=== PATIENT | male | born 1955 | race Caucasian/White ===

== ENCOUNTER 2023-10-28 09:52 | Outpatient (AMB) | payer MEDICARE, SELFPAY ==
--- NOTE | 2023-10-28 10:10 | HO.NEPHOV ---
HPI HPI Comments History of Present Illness Details I had the privilege of seeing Glen in follow-up of his mild chronic kidney disease. He remains abstinent from alcohol. His blood pressure has been at goal. He is working hard to lose more weight. He denies any urinary symptoms, chest pain, proximal nocturnal dyspnea, orthopnea or pedal edema. He has no orthostatic symptoms. He does not take any nonsteroidal anti-inflammatory medications on a regular basis. He has been having erectile dysfunction. He is compliant with his medications. He had some abdominal pain and had undergone CT scan. He is also closely followed for pulmonary nodules. He did not have any other systemic complaints during this office visit. [facility] Medical History (Updated 10/28/23 @ 13:04 by Rashaad Barcenas MD) Elevated PSA Chronic kidney disease, stage 2 (mild) Social History (Updated 10/28/23 @ 10:19 by Minerva Alberto MA) Alcohol intake: never Patient Tobacco Use Status: Never used Tobacco Vital Signs 10/28/23 10:15 Height 5 ft 11 in Weight 223 lb 6 oz BMI 31.2 BP 138/80 Blood Pressure Location Lt brachial Position Sitting Pulse 70 Pulse Source Pulse Oximeter Physical Exam Vital Signs: Last Vital Signs Pulse 70 10/28/23 10:15 BP 138/80 10/28/23 10:15 BMI result Body Mass Index 31.2 Const General: comfortable and no acute distress Orientation/consciousness: patient oriented x3 HEENT Head: Yes normocephalic Mouth: Normal oral and palatal mucosa present Eyes EOM: EOMs intact bilaterally Neck Neck: Yes supple Resp Auscultation: clear to auscultation bilaterally Cardio Jugular venous distension: no JVD Rate: regular rate GI Palpation (GI): Soft to palpation Auscultation: normal bowel sounds General: Yes no CVA tenderness Back/Spine/Pelvis Back: no CVA tenderness Skin General skin exam: no rashes or lesions noted Neuro General: patient oriented x3 and moves all extremities Extrem General: Yes no pedal edema Assessment & Plan Assessment & Plan (1) Chronic kidney disease, stage 2 (mild): Code(s): N18.2 - Chronic kidney disease, stage 2 (mild) (2) Erectile disorder: Code(s): N52.9 - Male erectile dysfunction, unspecified Plan Glen has mild CKD due to loss of GFR , likely from some tubular injury in the past. His renal functions are at baseline. He does not have any hematuria or proteinuria. His blood pressure is at goal. He is losing weight. He avoids nonsteroidal anti-inflammatory medications. He has erectile dysfunction. He may need a urology consult for his erectile disorder. He is on statins. He is tolerating PPI. I have ordered follow-up laboratory studies. All his questions and concerns were addressed. Time spent retrieving data, documentation and patient encounter 24 minutes. Follow-up given. Orders: Orders Blood Urea Nitrogen Today N18.2 - Chronic kidney disease, stage 2 (mild) Calcium Today N18.2 - Chronic kidney disease, stage 2 (mild) Electrolytes Today N18.2 - Chronic kidney disease, stage 2 (mild) Creatinine Today N18.2 - Chronic kidney disease, stage 2 (mild) Protein Creatinine Ratio, Ur Today N18.2 - Chronic kidney disease, stage 2 (mild) Coding Level of Care Code Est Pt Level 3 (30737) Diagnoses Chronic kidney disease, stage 2 (mild) N18.2 Erectile disorder N52.9
[2023-10-28 10:15] VITALS: BP 138/80; PULSE 70; BMI 31.2
== END 2023-10-28 10:43 | disposition home or self-care (01) ==
PROVIDERS: PCP Family Medicine; Visit Provider Internal Medicine Nephrology
DX: N18.2 Chronic kidney disease, stage 2 (mild) (principal); N52.9 Male erectile dysfunction, unspecified
CPT/HCPCS: 99213

== ENCOUNTER 2023-10-28 09:52 | Outpatient (REF) | payer MEDICARE, SELFPAY ==
[2023-10-28 13:16] LABS: Anion Gap 10 (12-20); Blood Urea Nitrogen 18 mg/dL (9-16); Calcium 9.6 mg/dL (8.4-10.2); Carbon Dioxide 29 mmol/L (22-29); Chloride 105 mmol/L (96-108); Estimated Glomerular Filt Rate > 60; Potassium 4.3 mmol/L (3.3-5.1); Sodium 140 mmol/L (135-145)
[2023-10-28 13:46] LABS: Creatinine Urine 188.92 mg/dL; Protein/Creatinine Ratio, Ur 0.05 (<0.2); Total Protein Urine Random 9 mg/dL (<12)
== END 2023-10-28 09:53 | disposition home or self-care (01) ==
LOC: CF 09:52
PROVIDERS: PCP Family Medicine; Visit Provider Internal Medicine Nephrology
DX: N18.2 Chronic kidney disease, stage 2 (mild) (principal); N52.9 Male erectile dysfunction, unspecified
CPT/HCPCS: 36415; 80051; 82310; 82565; 82570; 84156; 84520; 99212

== ENCOUNTER 2024-05-18 15:41 | Outpatient (AMB) | payer MEDICARE, SELFPAY ==
--- NOTE | 2024-05-18 15:51 | HO.NEPHOV ---
Vital Signs 05/18/24 15:52 Height 5 ft 11 in Weight 225 lb 8 oz BMI 31.4 BP 130/80 Blood Pressure Location Lt brachial Position Sitting Pulse 76 Pulse Source Pulse Oximeter Pulse Oximetry (%) 95 Oxygen Delivery Method Room Air Intake Visit Reasons: r/s 05/06/2024/ LVM Utility Bill Complaints Investigator Required: No Accompanied by: Self / Same As Patient Allergies No Known Allergies Allergy (Verified 05/18/24 15:58) HPI Comments Details: I had the privilege of seeing Glen in follow-up of his mild chronic kidney disease. He remains abstinent from alcohol. His blood pressure has been at goal. He is working hard to lose more weight. He denies any urinary symptoms, chest pain, proximal nocturnal dyspnea, orthopnea or pedal edema. He has no orthostatic symptoms. He does not take any nonsteroidal anti-inflammatory medications on a regular basis. He has been having erectile dysfunction. He is compliant with his medications. He is also closely followed for pulmonary nodules. He did not have any other systemic complaints during this office visit. [facility] Medical History (Updated 10/28/23 @ 13:04 by Rashaad Barcenas MD) Elevated PSA Chronic kidney disease, stage 2 (mild) Social History Alcohol intake: never Patient Tobacco Use Status: Never used Tobacco Review of Systems Const All systems reviewed & are unremarkable except as noted in HPI and below Physical Exam Vital Signs: Last Vital Signs Pulse 76 05/18/24 15:52 BP 140/80 H 05/18/24 15:52 Pulse Ox 95 05/18/24 15:52 Oxygen Delivery Method Room Air 05/18/24 15:52 BMI result Body Mass Index 31.4 Const General: comfortable and no acute distress Orientation/consciousness: patient oriented x3 HEENT Head: Yes normocephalic Mouth: Normal oral and palatal mucosa present Eyes EOM: EOMs intact bilaterally Neck Neck: Yes supple Resp Auscultation: clear to auscultation bilaterally Cardio Jugular venous distension: no JVD Rate: regular rate GI Palpation (GI): Soft to palpation Auscultation: normal bowel sounds General: Yes no CVA tenderness Back/Spine/Pelvis Back: no CVA tenderness Skin General skin exam: no rashes or lesions noted Neuro General: patient oriented x3 and moves all extremities Extrem General: Yes no pedal edema Assessment & Plan Assessment & Plan (1) Chronic kidney disease, stage 2 (mild): Code(s): N18.2 - Chronic kidney disease, stage 2 (mild) Category: Medical Plan He has mild CKD likely from tubular injury in the past. His renal functions has been stable. His BP is at goal. He needs to avoid NSAID's. He should remain well hydrated. He needs to loose some more weight. I ordered 24 hour urine for GFR. I did not make any medication changes today. Follow up blood work ordered. Answered all questions. Orders: Orders Creatinine Clearance Urine 24U Today N18.2 - Chronic kidney disease, stage 2 (mild) Creatinine Today N18.2 - Chronic kidney disease, stage 2 (mild) Blood Urea Nitrogen Today N18.2 - Chronic kidney disease, stage 2 (mild) Electrolytes Today N18.2 - Chronic kidney disease, stage 2 (mild) Coding Level of Care Code Est Pt Level 4 (14797) Diagnoses Chronic kidney disease, stage 2 (mild) N18.2
[2024-05-18 15:52] VITALS: BP 130/80; PULSE 76; O2SAT 95; BMI 31.4
== END 2024-05-18 16:16 | disposition home or self-care (01) ==
PROVIDERS: PCP Family Medicine; Visit Provider Internal Medicine Nephrology
DX: N18.2 Chronic kidney disease, stage 2 (mild) (principal)
CPT/HCPCS: 99214

== ENCOUNTER → 2024-05-18 15:41 | Outpatient (BNVA) | payer MEDICARE, SELFPAY | PROVIDERS: PCP Family Medicine; Visit Provider Internal Medicine Nephrology | DX: N18.2 Chronic kidney disease, stage 2 (mild) (principal) | CPT/HCPCS: 99212 ==

== ENCOUNTER 2024-12-09 10:08 | Outpatient (AMB) | payer MEDICARE, SELFPAY ==
--- OUTSIDE RECORDS SUMMARY | 2024-12-09 10:41 | XMS_ITS ---
Author Name [facility] Organization Unknown History of Medication Use Medication Directions Dispensed Refills Start Date End Date Stat levothyroxine (SYNTHROID, LEVOTHROID) 112 MCG tablet Take 1 tablet by mouth daily. 12/01/2024 11/30/9999 active azithromycin (ZITHROMAX) 250 MG tablet Take 2 tabs PO on day one and one tabs on days 2-5 #6 12/01/2024 11/30/9999 active escitalopram (LEXAPRO) 20 MG tablet Take 20 mg by mouth. 12/01/2024 11/30/9999 active predniSONE (DELTASONE) 20 MG tablet Take 2 tablets (40 mg total) by mouth daily. 12/01/2024 11/30/9999 active escitalopram (LEXAPRO) 20 MG tablet Take 1 tablet by mouth daily. 12/01/2024 11/30/9999 active ipratropium-albutero l (DUONEB) 0.5-2.5 mg/3 mL nebulizer solution 3 mL 12/01/2024 11/30/9999 active relugolix (Orgovyx) 120 mg tablet Take by mouth daily 12/01/2024 11/30/9999 ac tive atorvastatin (LIPITOR) 40 MG tablet Take 40 mg by mouth. 12/01/2024 11/30/9999 active albuterol (PROVENTIL) (0.083%) 2.5 mg/3 mL nebulizer solution Take 3 mL (2.5 mg total) by nebulization 4 times daily (every 6 hours) as needed for wheezing or shortness of breath. 12/01/2024 11/30/9999 active Problems Problem Status Onset Date Problem Type Date of Resoluti on Source COPD exacerbation (HCC) active [facility] Acute cough active EncounterDiagnosisAct [facility]
--- NOTE | 2024-12-09 10:52 | HO.NEPHOV_ITS ---
Vital Signs 12/09/24 10:54 Height 5 ft 11 in Weight 228 lb 6 oz BMI 31.8 BP 110/70 Blood Pressure Location Lt brachial Position Sitting Pulse 70 Pulse Source Pulse Oximeter Pulse Oximetry (%) 92 Oxygen Delivery Method Room Air Intake Visit Reasons: 6 mon follow up-[employer] Supervisor Required: No Accompanied by: Self / Same As Patient Allergies No Known Allergies Allergy (Verified 12/09/24 10:54) HPI Comments Details: Glen in follow-up of his mild chronic kidney disease. He has a new diagnosis of metastatic prostate cancer. He remains abstinent from alcohol. His blood pressure has been at goal. He denies any urinary symptoms, chest pain, proximal nocturnal dyspnea, orthopnea or pedal edema. He has no orthostatic symptoms. He does not take any nonsteroidal anti-inflammatory medications on a regular basis. He has H/O pulmonary nodules. He did not have any other systemic complaints during this office visit [facility] Medical History (Updated 10/28/23 @ 13:04 by Rashaad Barcenas MD) Elevated PSA Chronic kidney disease, stage 2 (mild) Social History Alcohol intake: never Patient Tobacco Use Status: Never used Tobacco Review of Systems Const All systems reviewed & are unremarkable except as noted in HPI and below Physical Exam Vital Signs: Last Vital Signs Pulse 70 12/09/24 10:54 BP 110/70 12/09/24 10:54 Pulse Ox 92 12/09/24 10:54 Oxygen Delivery Method Room Air 12/09/24 10:54 BMI result Body Mass Index 31.8 Const General: comfortable and no acute distress Orientation/consciousness: patient oriented x3 HEENT Head: Yes normocephalic Mouth: Normal oral and palatal mucosa present Eyes EOM: EOMs intact bilaterally Neck Neck: Yes supple Resp Auscultation: clear to auscultation bilaterally Cardio Jugular venous distension: no JVD Rate: regular rate GI Palpation (GI): Soft to palpation Auscultation: normal bowel sounds Skin General skin exam: no rashes or lesions noted Neuro General: patient oriented x3 and moves all extremities Extrem General: Yes no pedal edema Assessment & Plan Assessment & Plan (1) Chronic kidney disease, stage 2 (mild): Code(s): N18.2 - Chronic kidney disease, stage 2 (mild) Category: Medical Plan He has mild CKD likely from tubular injury in the past. His renal functions has been stable. His BP is at goal. He needs to avoid NSAID's. He should remain well hydrated. He wanted to increase his lexapro which I increased to 30 mg if he needs it. I did not make any medication changes today. Follow up blood work ordered. Answered all questions. Orders: Orders Electrolytes 10 Months N18.2 - Chronic kidney disease, stage 2 (mild) Creatinine 10 Months N18.2 - Chronic kidney disease, stage 2 (mild) Blood Urea Nitrogen 10 Months N18.2 - Chronic kidney disease, stage 2 (mild) Calcium 10 Months N18.2 - Chronic kidney disease, stage 2 (mild) Coding Level of Care Code Est Pt Level 4 (42366) Diagnoses Chronic kidney disease, stage 2 (mild) N18.2
[2024-12-09 10:54] VITALS: BP 110/70; PULSE 70; O2SAT 92; BMI 31.8
== END 2024-12-09 11:11 | disposition home or self-care (01) ==
PROVIDERS: PCP Family Medicine; Visit Provider Internal Medicine Nephrology
DX: N18.2 Chronic kidney disease, stage 2 (mild) (principal)
CPT/HCPCS: 99214

== ENCOUNTER → 2024-12-09 10:08 | Outpatient (BNVA) | payer MEDICARE, SELFPAY | PROVIDERS: PCP Family Medicine; Visit Provider Internal Medicine Nephrology | DX: N18.2 Chronic kidney disease, stage 2 (mild) (principal) | CPT/HCPCS: 99212 ==

== ENCOUNTER 2025-11-10 11:43 | Outpatient (REF) | payer MEDICARE, SELFPAY ==
--- OUTSIDE RECORDS SUMMARY | 2024-11-29 13:02 | XMS_ITS | Encounter Summary ---
Author Organization [facility] Address [address] [place] [address] Care Team Providers Care Sr. Payroll Manager Name Role Phone Pcp, No Primary Care Provider Unavailabl e Encounter Details Date Type Department Care Team (Late st Contact Info) Description 11/29/2024 1:02 PM EST Hospital Encounter [facility] [address] [place] [address] Social History Tobacco Use Types Packs/Day Years Used Date Smoking Tobacco: Never Smokeless Tobacco: Never Sex and Gender Information Value Date Recorded Sex Assigned at Not on file Legal Sex Male 11:46 AM EDT Gender Identity Not on file Sexual Orientation Not on file documented as of this encounter Plan of Treatment Not on file documented as of this encounter Procedures Procedure Name Priority Date/Time Associated Diagnosis Comments XR CHEST 2 VIEWS STAT 11/29/2024 1:08 PM EST Acute cough documented in this encounter Results * XR Chest 2 views (11/29/2024 1:08 PM EST) Anatomical Region Laterality Modality Chest Computed Radiogr aphy 11/29/2024 1:20 PM EST Impressions 11/29/2024 1:20 PM EST 1. No radiographic sign of acute cardiopulmonary disease. Narrative 11/29/2024 1:20 PM EST XR CHEST 2 VIEWS 11/29/2024 1:20 PM Cough COMPARISON: None. TECHNIQUE: Frontal and lateral views of the chest. FINDINGS: The lungs are clear. The heart is not enlarged. Mediastinal contours are within normal limits. No pleural effusion present. Skeletal structures are unremarkable. Procedure Note Apollo Lara MD - 11/29/2024 XR CHEST 2 VIEWS 11/29/2024 1:20 PM Cough COMPARISON: None. TECHNIQUE: Frontal and lateral views of the chest. FINDINGS: The lungs are clear. The heart is not enlarged. Mediastinal contours arewithin normal limits. No pleural effusion present. Skeletal structuresare unremarkable. IMPRESSION: 1. No radiographic sign of acute cardiopulmonary disease. us [facility]ry [facility] ORDERAB LES Final Result documented in this encounter Visit Diagnoses Not on filedocumented in this encounter Care Teams Sr. Payroll Manager Relationship Specialty Start Date End Date Pcp, No PCP - General General Medicine 10/24/24 documented as of this encounter
[2025-11-10 14:28] LABS: Anion Gap 11 (12-20); Blood Urea Nitrogen 19 mg/dL (9-16); Calcium 9.7 mg/dL (8.4-10.2); Carbon Dioxide 29 mmol/L (22-29); Chloride 105 mmol/L (96-108); Estimated Glomerular Filt Rate > 60; Potassium 4.1 mmol/L (3.3-5.1); Sodium 141 mmol/L (135-145)
--- OUTSIDE RECORDS SUMMARY | 2025-11-10 18:15 | XMS_ITS ---
Author Name [facility] Organization Unknown History of Medication Use Medication Directions Dispensed Refills Start Date End Date Stat azithromycin (ZITHROMAX) 250 MG tablet Take 2 tabs PO on day one and one tabs on days 2-5 #6 11/29/2024 12/04/2024 active ipratropium-albutero l (DUONEB) 0.5-2.5 mg/3 mL nebulizer solution 3 mL 11/29/2024 11/30/2024 active albuterol (PROVENTIL) (0.083%) 2.5 mg/3 mL nebulizer solution Take 3 mL (2.5 mg total) by nebulization 4 times daily (every 6 hours) as needed for wheezing or shortness of breath. 11/29/2024 active predniSONE (DELTASONE) 20 MG tablet Take 2 tablets (40 mg total) by mouth daily. 11/29/2024 active escitalopram (LEXAPRO) 20 MG tablet Take 20 mg by mouth. 10/17/2024 active atorvastatin (LIPITOR) 40 MG tablet Take 40 mg by mouth. 09/08/2024 active escitalopram (LEXAPRO) 20 MG tablet Take 1 tablet by mouth daily. active levothyroxine (SYNTHROID, LEVOTHROID) 112 MCG tablet Take 1 tablet by mouth daily. active relugolix (Orgovyx) 120 mg tablet Take by mouth daily ac tive Problems Problem Status Onset Date Problem Type Date of Resoluti on Source Acute cough [facility]ation ([facility]) [facility] Encounters Encounter Type Encounter Reason Primary Diagnosis Location Date Ambulatory [facility] 11/29/2024 Ambulatory Cough Cough [facility] 11/29/2024 Care Team Organization Name Specialty Phone Email Start Date End Da te Skype 12/03/2024 02/16/2025 [facility] NO PCP Primary Care 12/02/2024 [facility] 11/29/2024
--- OUTSIDE RECORDS SUMMARY | 2025-11-10 18:15 | XMS_ITS ---
Author Organization [facility] Address [address] [place] [address] Phone Care Team Providers Care Wind Tunnel Mechanic Name Role Phone Luc Duarte DO Primary Care Provider [phone] Active Problems Problem Noted Date Diagnosed Date Prostate cancer metastatic to bone 12/30/2024 Current Treatment and Therapy Plans DOCEtaxel / CARBOplatin - Non-Small Cell Lung Cancer / Head and Neck Cancers / Prostate Cancer* Plan Start Date:01/10/2025 Plan Provider:Freddy Mccarthy MD Linked Problems Prostate cancer metastatic t o bone ([facility] V24, [facility] V28) Treatment Medications Current Day (Day 1 , Cycle 6 - Planned for 05/06/2025) CARBOplatin (PARAPLATIN) ene mo 250 mL IVPB (by AUC)DOCEtaxel (TAXOTERE) chemo IVPB 250 mL NS DOCEtaxel (TAXOTERE) 169 mg in sodium chloride (non-PVC) 258.45 mL chemo IVPB LEUPROLIDE ( ELIGARD SQ / LUPRON IM ) 45 MG EVERY 24 WEEKS* Plan Start Date: 02/10/2025 Plan Provider:Freddy Mccarthy MD Linked Problems Prostate cancer metastatic t o bone ([facility] V24, [facility] V28) Treatment Medications leuprolide (ELIGARD) Past Treatment and Therapy Plans No past plan information found. Lifetime Dose Tracking * Chemical Lifetime Dose Automatic Entry Manual Entr y Fluoro Time 1 minutes 1 minutes 0 minutes Air Kerma 5 mGy 5 mGy 0 mGy
--- OUTSIDE RECORDS SUMMARY | 2025-11-10 18:15 | XMS_ITS | Clinical Summary ---
Author Organization [facility] Address [address] [place] [id number] Phone Care Team Providers Care Coal Pipeline Operator Name Role Phone Luc Duarte Primary Care Provider Ector Carr MD Unavailable [phone] Mikie Moss MD Unavailable Freddy Mccarthy MD Unavailable [phone] Medications albuterol 2.5 mg /3 mL (0.083 %) nebulizer solution Inhale 2.5 mg into the lungs every 6 (six) hours as needed. 11/29/2024 Active aspirin 81 MG EC tablet Take 1 tablet by mouth. Active atorvastatin (LIPITOR) 40 MG tablet Take 40 mg by mouth. 09/03/2024 Active baclofen (LIORESAL) 10 MG tablet TAKE 1 TABLET BY MOUTH THREE TIMES A DAY NEEDED FOR 7 DAYS 10/16/2024 Active escitalopram oxalate (LEXAPRO) 20 MG tablet Take 1 tablet by mouth daily. 07/17/2024 Active gabapentin (NEURONTIN) 300 MG capsule TAKE ONE CAPSULE BY MOUTH THREE TIMES A DAY NEEDED FOR MODERATE PAIN 10/25/2024 Active levothyroxine (SYNTHROID, LEVOTHROID) 112 MCG tablet Take 1 tablet by mouth daily. 08/03/2024 Active omeprazole (PRILOSEC) 20 mg TbEC Take by mouth every morning (before breakfast). Active oxyCODONE 5 MG immediate release tablet TAKE 1 TABLET BY MOUTH EVERY 8 HOURS NEEDED FOR 7 DAYS 10/07/2024 Active relugolix (ORGOVYX) 120 mg tablet Take by mouth daily. Active Active Problems Problem Noted Date Diagnosed Date Morales's esophagus 10/19/2025 Overview (10/19/2025): EGD-08/2016-neg path History of depression 10/19/2025 Hyperlipidemia 10/19/2025 Sleep apnea 10/19/2025 Overview (10/19/2025): Dr. Pryor Prediabetes 10/19/2025 Prostate cancer metastatic to bone 12/30/2024 Chronic obstructive pulmonary disease 01/27/2023 Chronic kidney disease, stage 2 (mild) Overview (10/19/2025): Andrés Macario 10/20/2019 Encounters Date Type Department Care Team Description 10/17/2025 2:00 PM EST Telemedicine [facility] [address] [place] [address] Sergei Fisher MD, ALYSHA Prostate cancer (Primary Dx) from Last 3 Months Family History Medical History Relation Comments Prostate cancer Brother 1 Leukemia Brother 2 Relation Status Comments Brother 1 Brother 2 Unknown Social History Tobacco Use Types Packs/Day Years Used Date Smoking Tobacco: Never Assessed Child or Family Care Answer Date Record ed Do you have problems with on e of the following making it difficult for you to work, study, or receive health care? No 11/15/2024 Education Answer Date Recorded Are you interested in more education? Not on rajani e 11/08/2024 Are you concerned about learning? Not on file 11/08/2024 No 11/08/2024 No 11/08/2024 Food Answer Date Recorded Within the past 6 months we worried whether our food would run out before we got money to buy more. Never True 11/15/2024 Within the past 6 months the food we bought just didn't last and we didn't have enough money to get more. Never True Residential Stability Answer Date Recor ded What is your housing situation today? I have david sing 11/15/2024 How many times have you move d in the past 12 months? Zero (I did not move) 11/15/2024 Paying for Meds Answer Date Recorded Do you have trouble paying for medicines? I doyle se not to answer 11/15/2024 Paying Utility Bills Answer Date Record ed Do you have trouble paying your heating or elect ricity bill? No 11/15/2024 Transportation Answer Date Recorded Has the lack of transportati on kept you from medical appointments or from getting medications? No 11/15/2024 Digital Access Answer Date Recorded No 11/08/2024 No 11/08/2024 Reliable internet access at home? Not on file 11/08/2024 Device with a working camera? Not on file Sex and Gender Information Value Date Recorded Sex Assigned at Not on file Legal Sex Male 9:28 AM EST Gender Identity Not on file Sexual Orientation Not on file Last Filed Vital Signs Vital Sign Reading Time Taken Comments Blood Pressure 149/80 12/08/2024 4:15 PM EST Pulse 64 12/08/2024 3:40 PM EST Temperature 36.6 C (97.8 F) 12/08/2024 1:45 PM EST Respiratory Rate 16 12/08/2024 4:20 PM EST Oxygen Saturation 96% 12/08/2024 4:20 PM EST Inhaled Oxygen Concentration - - Weight 103.1 kg (227 lb 4.7 oz) 11/15/2024 3:13 PM EST Height 176.5 cm (5' 9.49 ) 11/15/2024 3:13 PM ES T Body Mass Index 33.1 11/15/2024 3:13 PM EST Plan of Treatment Upcoming Encounters Date Type Department Care Team (Late st Contact Info) Description 10/17/2025 Procedure Pass [facility] - RF/IR [address] [place] [address] 10/19/2025 11:59 PM EST Anesthesia Event [facility] [address] [place] [address] Fran Young, CABLE SWAGER [address] [place] [phone] 12/05/2025 11:00 AM EST Appointment Department of Radiation Oncology [address] [address] Sergei Fisher MD, ALYSHA [address] [address] 12/06/2025 Hospital Encounter [facility] [address] [place] [address] Zelalem Negrete MD [address] [facility] [place] [address] [email or web address] 12/06/2025 Procedure Pass [facility] [address] [place] [address] 12/09/2025 10:00 AM EST Appointment [facility] - RF/IR [address] [place] [address] Sergei Fisher MD, ALYSHA [address] [place] [address] [email or web address] Donell Weaver MD [facility] [place] [address] [email or web address] Scheduled Procedures Name Priority Associated Diagnoses Date/Ti me TRANSPERINEAL PLACEMENT BIOD EGRADABLE MATERIAL PROSTATE Prostate cancer Health Maintenance Due Date Last Done Comments Adult Td,Tdap Booster 1955 LIPID PANEL 1955 DEPRESSION SCREENING 1968 SMOKING Hx and SMOKELESS TOBACCO SCREENING 02/12/1969 HEPATITIS C SCREENING 02/12/1974 PNEUMOCOCCAL VACCINES (50+ years) (1 of 2 - PCV) 02/12/1975 ZOSTER VACCINES (1 of 2) 02/12/1975 SCREENING FOR DIABETES 02/12/1991 COLOGUARD 02/12/2001 COLONOSCOPY 02/12/2001 COLORECTAL CANCER SCREENING 02/12/2001 FIT TEST 02/12/2001 FOBT 02/12/2001 SIGMOIDOSCOPY 02/12/2001 VIRTUAL COLONOSCOPY 02/12/2001 RSV VACCINE (1 - Risk 50-74 years 1-dose series) 02/12/2006 INFLUENZA VACCINE (#1) 2025 2, 12/03/2019, 09/28/2016 COVID-19 VACCINE (2024-2 6 season) 2025 03/12/2021, 02/17/2021 TSH LEVEL 04/12/2026 04/12/2025 HEPATITIS A VACCINES Aged Out No long er eligible based on patient's age to complete this topic HIB VACCINES Aged Out No longer eligi ble based on patient's age to complete this topic MENINGOCOCCAL VACCINES (ACWY) Aged Out No longer eligible based on patient's age to complete this topic MENINGOCOCCAL VACCINES (B) Aged Out N o longer eligible based on patient's age to complete this topic Medical Devices Not on file Insurance [facility] MEDEX SUPPLEMENT MEDICARE PART A & B [employer] MEDEX SUPPLEMENT MEDICARE PART A & B Member Subscriber Plan / Payer ( fective 2021-) Name:Glen Jimenez Member ID:[id number] Relation to Subscriber:Self Name:Glen Jimenez Subscriber ID:[id number] Payer ID:[id number] Group ID:Not on file Type:Medicare Address: [facility] [employer] [address] [address] [employer] MEDEX SUPPLEMENT MEDICARE PART A & B [employer] MEDEX SUPPLEMENT MEDICARE PART A & B [employer] MEDEX SUPPLEMENT MEDICARE PART A & B [facility] MEDEX SUPPLEMENT MEDICARE PART A & B Care Teams Coal Pipeline Operator Relationship Specialty Start Date End Date Luc Duarte DO [address] [facility] [place] [address] PCP - General Family Medicine 11/08/24 Ector Carr MD [address] [facility] [place] [address] [email or web address] Referring Physician Urology 11/08/24 Mikie Moss MD [address] [place] [address] [email or web address] Medical Oncology 11/08/24 Freddy Mccarthy MD [address] [place] [address] Medical Oncology 11/15/24 Additional Source Comments The information contained in this document represents components of the legal health record. It is not the complete legal health record.[facility]
--- OUTSIDE RECORDS SUMMARY | 2025-11-10 18:15 | XMS_ITS | Clinical Summary ---
Author Organization [facility] Address [address] [place] [address] Care Team Providers Care Aging Room Operator Name Role Phone Pcp, No Primary Care Provider Unavailabl e Allergies No known active allergies Medications escitalopram (LEXAPRO) 20 MG tablet Take 20 mg by mouth. 4 Active levothyroxine (SYNTHROID, LEVOTHROID) 112 MCG tablet Take 1 tablet by mouth daily. Active escitalopram (LEXAPRO) 20 MG tablet Take 1 tablet by mouth daily. Active atorvastatin (LIPITOR) 40 MG tablet Take 40 mg by mouth. 4 Active relugolix (Orgovyx) 120 mg tablet Take by mouth daily Active predniSONE (DELTASONE) 20 MG tabletIndication s:COPD exacerbation (HCC) Take 2 tablets (40 mg total) by mouth daily. 10 tablet 4 Active albuterol (PROVENTIL) (0.083%) 2.5 mg/3 mL nebulizer solutionIndicati ons:COPD exacerbation (HCC) Take 3 mL (2.5 mg total) by nebulization 4 times daily (every 6 hours) as needed for wheezing or shortness of breath. 75 mL 4 Active Social History Tobacco Use Types Packs/Day Years Used Date Smoking Tobacco: Never Smokeless Tobacco: Never Sex and Gender Information Value Date Recorded Sex Assigned at Not on file Legal Sex Male 11:46 AM EDT Gender Identity Not on file Sexual Orientation Not on file Last Filed Vital Signs Vital Sign Reading Time Taken Comments Blood Pressure 113/80 11/29/2024 12:45 PM EST Pulse 92 11/29/2024 12:45 PM EST Temperature 36.4 C (97.5 F) 11/29/2024 12:45 PM EST Respiratory Rate 16 11/29/2024 1:26 PM EST Oxygen Saturation 94% 11/29/2024 1:26 PM EST Inhaled Oxygen Concentration - - Weight - - Height - - Body Mass Index - - Plan of Treatment Health Maintenance Due Date Last Done Comments Advance Care Planning 1955 Hepatitis C Virus Screening 1955 DTaP/Tdap/Td Vaccines (1 - Tdap) 02/12/1975 Pneumococcal Vaccines 50+ (1 of 2 - PCV) 02/12/1975 Zoster (Shingles) Vaccine (1 of 2) 02/12/1975 Colonoscopy 02/12/2001 RSV Vaccine 50 years and older and Patients (1 - Risk 50-74 years 1-dose series) 02/12/2006 COVID-19 Vaccine (3 - Pfizer risk series) 04/09/2021 03/12/2021, 02/17/2021 Influenza Vaccine 07/01/2025 09/17/2022, , 12/03/2019, Additional history exists Hepatitis B Vaccines Aged Out No long er eligible based on patient's age to complete this topic Insurance MEDICARE PART A & B [place] [id number] Care Teams Aging Room Operator Relationship Specialty Start Date End Date Pcp, No PCP - General General Medicine 10/24/24
--- OUTSIDE RECORDS SUMMARY | 2025-11-10 18:15 | XMS_ITS | Clinical Summary ---
Author Organization [facility] Address [address] [place] [address] Phone Care Team Providers Care Lump Inspector Name Role Phone Luc Duarte DO Primary Care Provider Allergies No known active allergies Medications atorvastatin (LIPITOR) 40 mg tablet 1 Tablet at bedtime. 2 Active escitalopram (LEXAPRO) 20 mg tablet 1 Tablet daily. 2 Active omeprazole (PRILOSEC) 20 mg tablet,delayed release (DR/EC) Take by mouth every morning (before breakfast). Active albuterol HFA (PROAIR HFA ; PROVENTIL HFA ; VENTOLIN HFA) 90 mcg/actuation inhaler Inhale 2 puffs by mouth every 6 (six) hours if needed for wheezing. Active calcium carbonate-vitam in D 500 mg-5 mcg (200 unit) per tablet Take 1 tablet by mouth 1 (one) time each day. Active aspirin 81 mg chewable tablet Chew 1 tablet (81 mg total) 1 (one) time each day. Active levothyroxine (SYNTHROID, LEVOTHROID) 137 mcg tablet Take 1 tablet (137 mcg total) by mouth 1 (one) time each day before breakfast. Active enzalutamide (Xtandi) 80 mg tabletIndicatio ns:Prostate cancer metastatic to bone (CMS/HCC V24, CMS/HCC V28) Take 2 tablets (160 mg total) by mouth 1 (one) time each day 60 tablet 5 5 Active enzalutamide (XTANDI) 80 mg tablet Take 2 tablets (160 mg total) by mouth 1 (one) time each day 60 tablet 5 10/31/2025 10:27 AM EST 5 Active enzalutamide (Xtandi) 80 mg tablet Take 2 tablets (160 mg total) by mouth 1 (one) time each day 60 tablet 5 10/03/2025 8:48 AM EST 5 10/25/20 25 Discontinu ed(Reorder ) Active Problems Problem Noted Date Diagnosed Date Prostate cancer metastatic to bone 12/30/2024 Encounters Date Type Department Care Team Description 11/02/2025 9:25 AM EST Lab Draw Station - [address] [phone] Prostate cancer metastatic to bone (CMS/HCC V24, CMS/HCC V28) 11/02/2025 8:45 AM EST Office Visit [facility] Hematology Oncology [address] [place] [phone] Freddy Mccarthy MD Prostate cancer metastatic to bone (CMS/HCC V24, CMS/HCC V28) (Primary Dx) 08/29/2025 9:18 AM EDT - 08/29/2025 11:59 PM EDT Hospital Encounter [facility] Radiation Oncology [address] [place] [phone] Charles Almanzar MD Prostate cancer metastatic to bone ([facility]/HCC V24, CMS/HCC V28) (Primary Dx) Discharge Disposition: Home or Self Care 08/29/2025 9:17 AM EDT - 08/29/2025 11:59 PM EDT Hospital Encounter [facility] Radiation Oncology [address] [place] [phone] Discharge Disposition: Home or Self Care 08/16/2025 Telephone [facility] Radiation Oncology [address] [place] [phone] Sydnie Arroyo [place] 08/15/2025 8:45 AM EDT Office Visit [facility] Hematology Oncology [address] [place] [phone] Freddy Mccarthy MD Prostate cancer metastatic to bone ([facility] V24, [facility] V28) (Primary Dx) from Last 3 Months Surgical History Surgery Date Site/Laterality Comments HERNIA REPAIR Medical History Medical History Date Comments Bone cancer ([facility] V24, [facility] V28) Prostate cancer ([facility] V24[facility] V28) 10/24 Metastatic cancer ([facility] V24[facility] V28) Cancer ([facility] V24, [facility] V28) Basal cell carcinoma nose Family History Medical History Relation Name Comments Leukemia Brother 1 Pat Prostate cancer Brother 2 Sergei Lung cancer Father Relation Name Status Comments Brother 1 Pat Brother 2 Sergei Alive Father Social History Tobacco Use Types Packs/Day Years Used Date Smoking Tobacco: Former Cigarettes 2 30 Cigars Smokeless Tobacco: Former Tobacco Cessation:Counseling Given: Not Answered Alcohol Use Standard Drinks/Week Comments Not Currently 0 (1 standard drink = 0.6 oz pur e alcohol) Sex and Gender Information Value Date Recorded Sex Assigned at Male 11/09/2024 9:02 AM EST Legal Sex Male 5:32 PM EST Gender Identity Male 11/09/2024 9:02 AM EST Sexual Orientation Straight 01/04/2025 7: 58 AM EST Occupation Industry Job Start Date Job End Date retired Not on file Not on file Not on file Last Filed Vital Signs Vital Sign Reading Time Taken Comments Blood Pressure 131/87 11/02/2025 8:52 AM EST Pulse 66 11/02/2025 8:52 AM EST Temperature 35.2 C (95.3 F) 11/02/2025 8:52 AM EST Respiratory Rate 18 08/29/2025 9:42 AM EDT Oxygen Saturation 99% 11/02/2025 8:52 AM EST Inhaled Oxygen Concentration - - Weight 102 kg (224 lb) 11/02/2025 8:52 AM EST Height 177.8 cm (5' 10 ) 08/29/2025 9:42 AM EDT Body Mass Index 32.14 08/29/2025 9:42 AM EDT Plan of Treatment Upcoming Encounters Date Type Department Care Team (Late st Contact Info) Description 01/26/2026 8:30 AM EST Appointment [facility] Infusion Center [address] [place] [address] [place] [phone] 03/08/2026 9:00 AM EDT Office Visit [facility] Hematology Oncology [address] [place] [phone] Freddy Mccarthy MD [address] [place] [address] Health Maintenance Due Date Last Done Comments DTaP,Tdap,and Td Vaccines (1 - Tdap) 02/12/1975 Pneumococcal Vaccine: 50+ Years (1 of 2 - PCV) 02/12/1975 Zoster Vaccines (1 of 2) 02/12/1975 RSV Immunization Adult Patients (1 - Risk 50-74 years 1-dose series) 02/12/2006 COVID-19 Vaccine (3 - Pfizer risk series) 04/09/2021 03/12/2021, 02/17/2021 Abdominal Aortic Aneurysm (AAA) Screen 01/26/2023 Cholesterol Screening (Lipid Panel) 01/26/2023 Hepatitis C Screening 01/26/2023 Medicare Annual Wellness Visit 01/26/2023 Social Influencers of Health Screening 01/26/2023 Depression Screening 12/01/2024 Influenza Vaccine (#1) 2025 2, 12/07/2019, 12/03/2019, Additional history exists Falls Risk Assessment 07/28/2026 07/28/2025 Colorectal Cancer Screening: Colonoscopy 08/26/2026 08/26/2016 HIB Vaccines Aged Out No longer eligi ble based on patient's age to complete this topic HPV Vaccines Aged Out No longer eligi ble based on patient's age to complete this topic Hepatitis A Vaccines Aged Out No long er eligible based on patient's age to complete this topic Hepatitis B Vaccines Aged Out No long er eligible based on patient's age to complete this topic IPV Vaccines Aged Out No longer eligi ble based on patient's age to complete this topic MMR Vaccines Aged Out No longer eligi ble based on patient's age to complete this topic Meningococcal ACWY Vaccine Aged Out N o longer eligible based on patient's age to complete this topic Meningococcal B Vaccine Aged Out No l onger eligible based on patient's age to complete this topic RSV Immunization Patients Under 20 months Aged Out No longer eligible based on patient's age to complete this topic Varicella Vaccines Aged Out No longer eligible based on patient's age to complete this topic Medical Devices Implanted Type Area Railroad Inspector Device Identifier Shelf Expiration Date Model / Serial / Lot Port Pwr Isp Attach 6f Interm Phyllis - [id number] - [id number] Implanted:Qty: 1 on 01/04/2025 at [facility] Central/Nata pheral Catheters and Ports Right: Chest Wall CR [employer] [id number] 09/30/2025 [id number] / [id number] / [id number] Procedures Procedure Name Priority Date/Time Associated Diagnosis Comments CBC WITH AUTO DIFFERENTIAL Routine 11/02/2025 9:22 AM EST Prostate cancer metastatic to bone (CMS/HCC V24, CMS/HCC V28) PROSTATE SPECIFIC ANTIGEN DIAGNOSTIC Routine 11/02/2025 9:22 AM EST Prostate cancer metastatic to bone (CMS/HCC V24, CMS/HCC V28) COMPREHENSIVE METABOLIC PANEL Routine 11/02/2025 9:22 AM EST Prostate cancer metastatic to bone (CMS/HCC V24, CMS/HCC V28) CBC AND DIFFERENTIAL Routine 11/02/2025 9:22 AM EST Prostate cancer metastatic to bone (CMS/HCC V24, CMS/HCC V28) MAGNESIUM Routine 11/02/2025 9:22 AM EST Prostate cancer metastatic to bone (CMS/HCC V24, CMS/HCC V28) CBC WITH AUTO DIFFERENTIAL Routine 08/12/2025 1:26 PM EDT Prostate cancer metastatic to bone (CMS/HCC V24, CMS/HCC V28) PROSTATE SPECIFIC ANTIGEN DIAGNOSTIC Routine 08/12/2025 1:26 PM EDT Prostate cancer metastatic to bone (CMS/HCC V24, CMS/HCC V28) COMPREHENSIVE METABOLIC PANEL Routine 08/12/2025 1:26 PM EDT Prostate cancer metastatic to bone (CMS/HCC V24, CMS/HCC V28) CBC AND DIFFERENTIAL Routine 08/12/2025 1:26 PM EDT Prostate cancer metastatic to bone (CMS/HCC V24, CMS/HCC V28) HM COLONOSCOPY Routine 08/26/2016 from Last 3 Months or Most Recently Relevant to Health Maintenance Results * Prostate specific antigen diagnostic (11/02/2025 9:22 AM EST) Only the most recent of2 resultswithin the time period is included. PSA 0.05 0.00 - 4.00 ng/mL 11/02/2025 12:09 PM EST [facility] Blood Venous blood specimen / Unknown Venipuncture / Unknown 11/02/2025 9:22 AM EST 11/02/2025 11:40 AM EST Narrative [facility] - 11/02/2025 12:09 PM EST The Siemens [employer] IM Chemiluminescent Immunoassay is used. Results obtained with different assay methods or kits cannot be used interchangeably. Results cannot be interpreted as absolute evidence of the presence or absence of malignant disease. Freddy Mccarthy MD LAB BLOOD ORDERABLES Final R esult [facility] [address] [place] [address], * (ABNORMAL) CBC auto differential (11/02/2025 9:22 AM EST) Only the most recent of2 resultswithin the time period is included. WBC 7.0 4.8 - 10.8 K/mcL LAB HEMETOLOGY METHOD 11/02/2025 11:52 AM EST [facility] RBC 5.00 4.50 - 5.50 M/mcL LAB HEMETOLOGY METHOD 11/02/2025 11:52 AM EST [facility] Hemoglobin 14.8 13.5 - 17.5 g/dL LAB HEMETOLOGY METHOD 11/02/2025 11:52 AM [facility] Hematocrit 44.1 42.0 - 54.0 % LAB HEMETOLOGY METHOD 11/02/2025 11:52 AM [facility] MCV 87.7 79.0 - 98.0 FL LAB HEMETOLOGY METHOD 11/02/2025 11:52 AM [facility] MCH 29.4 27.0 - 32.0 pcg LAB HEMETOLOGY METHOD 11/02/2025 11:52 AM [facility] MCHC 33.6 32.0 - 37.0 g/dL LAB HEMETOLOGY METHOD 11/02/2025 11:52 AM [facility] RDW 15.4(H) 11.0 - 15.0 % LAB HEMETOLOGY METHOD 11/02/2025 11:52 AM [facility] Platelets 219 130 - 400 K/mcL LAB HEMETOLOGY METHOD 11/02/2025 11:52 AM [facility] MPV 10.0 7.0 - 11.0 FL LAB HEMETOLOGY METHOD 11/02/2025 11:52 AM [facility] NRBC 0.0 <1.0 % LAB HEMETOLOGY METHOD 11/02/2025 11:52 AM [facility] NRBC Absolute 0.00 <0.10 K/mcL LAB HEMETOLOGY METHOD 11/02/2025 11:52 AM [facility] Neutrophils Relative 46.5 % LAB HEMETOLOGY METHOD 11/02/2025 11:52 AM [facility] Lymphocytes Relative 33.8 % LAB HEMETOLOGY METHOD 11/02/2025 11:52 AM [facility] Monocytes Relative 11.6 % LAB HEMETOLOGY METHOD 11/02/2025 11:52 AM [facility] Eosinophils Relative 6.5 % LAB HEMETOLOGY METHOD 11/02/2025 11:52 AM EST [facility] Basophils Relative 1.0 % LAB HEMETOLOGY METHOD 11/02/2025 11:52 AM EST [facility] Immature Granulocytes Relative 0.6 % LAB HEMETOLOGY METHOD 11/02/2025 11:52 AM [facility] Neutrophils Absolute 3.24 1.50 - 7.00 K/mcL LAB HEMETOLOGY METHOD 11/02/2025 11:52 AM EST [facility] Lymphocytes Absolute 2.35 1.00 - 5.00 K/mcL LAB HEMETOLOGY METHOD 11/02/2025 11:52 AM EST [facility] Monocytes Absolute 0.81 0.20 - 1.00 K/mcL LAB HEMETOLOGY METHOD 11/02/2025 11:52 AM EST [facility] Eosinophils Absolute 0.45 0.00 - 0.50 K/mcL LAB HEMETOLOGY METHOD 11/02/2025 11:52 AM EST [facility] Basophils Absolute 0.07 0.00 - 0.20 K/mcL LAB HEMETOLOGY METHOD 11/02/2025 11:52 AM EST [facility] Immature Granulocytes Absolute 0.04(H) 0.00 - 0.03 K/mcL LAB HEMETOLOGY METHOD 11/02/2025 11:52 AM [facility] Blood Blood sample taken from central line / Unknown Existing Catheter / Unknown 11/02/2025 9:22 AM EST 11/02/2025 11:40 AM EST us Freddy Mccarthy MD LAB BLOOD ORDERABLES Final R esult [facility] [address] [place] [address], * (ABNORMAL) Magnesium (11/02/2025 9:22 AM EST) Magnesium 1.8(L) 1.9 - 2.6 mg/dL 11/02/2025 12:26 PM [facility] Blood Blood sample taken from central line / Unknown Existing Catheter / Unknown 11/02/2025 9:22 AM EST 11/02/2025 11:40 AM EST Freddy Mccarthy MD LAB BLOOD ORDERABLES Final R esult [facility] [address] [place] [address], [place] [phone] * (ABNORMAL) Comprehensive metabolic panel (11/02/2025 9:22 AM EST) Only the most recent of2 resultswithin the time period is included. Pathologist [facility] Sodium 139 133 - 145 mmol/L 11/02/2025 2:00 PM [facility] Potassium 4.2 3.5 - 5.5 mmol/L 11/02/2025 2:00 PM [facility] Chloride 100 96 - 110 mmol/L 11/02/2025 2:00 PM [facility] CO2 28 21 - 32 mmol/L 11/02/2025 2:00 PM [facility] Anion Gap 11 3 - 11 11/02/2025 2:00 PM [facility] Glucose 95 70 - 100 mg/dL 11/02/2025 2:00 PM [facility] BUN 19 5 - 25 mg/dL 11/02/2025 2:00 PM [facility] Creatinine 1.21 0.70 - 1.30 mg/dL 11/02/2025 2:00 PM [facility] eGFR 65 >=60 mL/min/1. 73m2 11/02/2025 2:00 PM [facility] Comment:Calculation based on the Chronic Kidney Disease Epidemiology Collaboration (CKD-EPI) equation refit without adjustment for race. BUN/Creatinine Ratio 15.7 11/02/2025 2:00 PM [facility] Calcium 9.4 8.5 - 10.5 mg/dL 11/02/2025 2:00 PM [facility] AST (SGOT) 29 10 - 42 unit/L 11/02/2025 2:00 PM [facility] ALT (SGPT) 29 10 - 60 unit/L 11/02/2025 2:00 PM [facility] Alkaline Phosphatase 125(H) 42 - 121 unit/L 11/02/2025 2:00 PM [facility] Total Protein 6.8 6.0 - 8.0 g/dL 11/02/2025 2:00 PM [facility] Albumin 4.2 3.2 - 5.0 g/dL 11/02/2025 2:00 PM [facility] Total Bilirubin 0.7 0.0 - 1.4 mg/dL 11/02/2025 2:00 PM [facility] Blood Blood sample taken from central line / Unknown Existing Catheter / Unknown 11/02/2025 9:22 AM EST 11/02/2025 11:40 AM EST Freddy Mccarthy MD LAB BLOOD ORDERABLES Final R esult [facility] [address] [place] [address], * Colonoscopy (08/26/2016) [facility] Colonoscopy normal, abstracted Anatomical Region Laterality Modality Other Historical Provider HEALTH MAINTENANCE Final Result from Last 3 Months or Most Recently Relevant to Health Maintenance Insurance MEDICARE [facility] Care Teams Lump Inspector Relationship Specialty Start Date End Date Luc Duarte DO [address] [place], [place] PCP - General 09/18/22
--- OUTSIDE RECORDS SUMMARY | 2025-11-10 18:15 | XMS_ITS | Encounter Summary ---
Author Organization [facility] Address [address] [place] [address] [place] [phone] Phone Care Team Providers Care Clinical Appeals Specialist Name Role Phone Luc Duarte Primary Care Provider Ector Carr MD Unavailable Mikie Moss MD Unavailable [phone] Freddy Mccarthy MD Unavailable [phone] Encounter Details Date Type Department Care Team (Late st Contact Info) Description 11/19/2024 Procedure Pass [facility] Cross Sectional Interventional Radiology [address] [place] [phone] Social History Tobacco Use Types Packs/Day Years [...] as of this encounter Plan of Treatment Upcoming Encounters Date Type Department Care Team (Late st Contact Info) Description 10/17/2025 Procedure Pass [facility] Imaging - RF/IR [address] [place] [address] 10/19/2025 11:59 PM EST Anesthesia Event [facility] [address] [place] [address] Fran Young CNP [address] [place] [phone] 12/05/2025 11:00 AM EST Appointment Department of Radiation Oncology [address] [place] [phone] Sergei Fisher MD, ALYSHA [address] [facility], [facility] [address] 12/06/2025 Hospital Encounter [facility] [address] [place] [address] Zelalem Negrete MD 55 [facility] FND [address] [place] [address] [email or web address] 12/06/2025 Procedure Pass [facility] [address] [place] [address] 12/09/2025 10:00 AM EST Appointment [facility] Imaging - RF/IR [address] [place] [address] Sergei Fisher MD, ALYSHA [address], [address] [place] [address] [email or web address] Donell Weaver MD 55 [facility] WHT [address] [place] [address] [email or web address] [email or web address] Procedures Name Priority Associated Diagnoses Date/Ti me TRANSPERINEAL PLACEMENT BIOD EGRADABLE MATERIAL PROSTATE Prostate cancer documented as of this encounter Visit Diagnoses Not on filedocumented in this encounter Care Teams Clinical Appeals Specialist Relationship Specialty Start Date End Date Luc Duarte DO [address] [facility] [place] [address] PCP - General Family Medicine 11/08/24 Ector Carr MD [address] [facility] [place] [address] [email or web address] Referring Physician Urology 11/08/24 Mikie Moss MD [address] [place] [address] [email or web address] Medical Oncology 11/08/24 Freddy Mccarthy MD [address] [place] [address] Medical Oncology 11/15/24 documented as of this encounter Additional Source Comments The information contained in this document represents components of the legal health record. It is not the complete legal health record.[facility]
== END 2025-11-10 11:44 | disposition home or self-care (01) ==
LOC: HO.HKASLDS 11:43
PROVIDERS: PCP Nurse Practitioner Primary Care; Visit Provider Internal Medicine Nephrology
DX: N18.2 Chronic kidney disease, stage 2 (mild) (principal)
CPT/HCPCS: 36415; 80051; 82310; 82565; 84520

== ENCOUNTER 2025-11-17 14:13 | Outpatient (AMB) | payer MEDICARE, SELFPAY ==
--- OUTSIDE RECORDS SUMMARY | 2024-11-29 13:02 | XMS_ITS | Encounter Summary ---
Author Organization [facility] Address [address] [place] [address] Care Team Providers Care Web Assistant Name Role Phone Pcp, No Primary Care Provider Unavailabl e Encounter Details Date Type Department Care Team (Late st Contact Info) Description 11/29/2024 1:02 PM EST Hospital Encounter [facility] [address] [place] [address] Social History Tobacco Use Types [...] on filedocumented in this encounter Care Teams Web Assistant Relationship Specialty Start Date End Date Pcp, No PCP - General General Medicine 10/24/24 documented as of this encounter
--- OUTSIDE RECORDS SUMMARY | 2025-11-16 23:59 | XMS_ITS | Continuity of Care Document ---
Author Organization [facility] Adult Address [address] [place] [address]- Care Team Providers Care Hotel Server Name Role Phone Edmund RIGGS, Germaine Brooks Primary Care Physicia n Encounter [facility] [place] [id number] Date(s): 10/17/25 - 11/16/25 [facility] Adult [address] [place] [address]- Attending Physician: Admtr, Ar8 Admitting Physician: Admtr, Ar8 Referring Physician: Admtr, Ar8 Encounter Type: Triage Allergies, Adverse Reactions, Alerts No Known Allergies Immunizations Given and Recorded Vaccine Date Status Refusal Reason influenza virus vaccine, inactivated 09/17/22 Give n influenza virus vaccine, inactivated 12/03/19 Van rded influenza virus vaccine, inactivated 09/28/16 Van rded SARS-CoV-2 (COVID-19) mRNA BNT-162b2 vac 03/12/21 Recorded SARS-CoV-2 (COVID-19) mRNA BNT-162b2 vac 02/17/21 Recorded Influenza Virus Vaccine (oldterm) 12/07/19 Recorde d Medications Albuterol (Eqv-Ventolin HFA) 90 mcg/inh inhalation aerosol 2 puffs, Inhalation, 4 times a day, PRN NEEDED FOR WHEEZING / SHORTNESS OF BREATH, # 18 Gm, 11 Refills, Maintenance, 08/24/24 4:00:00 PM EDT, [facility], 25, INHALE 2 PUFFS FOUR TIMES A DAY NEEDED FOR WHEEZING / SHORTNESS OF BREATH, 180, cm, 05/29/24 9:48:00 EDT, Height, 100, kg, 04/20/23 15:33:00 EDT, Dry Weight Start Date: 08/24/24 Status: Ordered Medication Dispense Status: Completed Quantity: 18.0 Unit: g Total Allowed Fills: 1 Fills Dispensed: 0 atorvastatin 40 mg oral tablet 1 tablet, By Mouth, Daily, # 90 tablet, 1 Refills, Maintenance, 09/15/25 4:47:00 PM EDT, [facility], 183, cm, 04/20/25 10:25:00 EDT, Height, 102.5, kg, 10/24/24 18:22:00 EST, Dry Weight Start Date: 09/15/25 Status: Ordered Medication Dispense Status: Completed Quantity: 90.0 Unit: tablet Total Allowed Fills: 1 Fills Dispensed: 0 atorvastatin 40 mg oral tablet 1 tablet, By Mouth, Daily, # 90 tablet, 1 Refills, Maintenance, 09/15/25 4:47:00 PM EDT, [facility], 183, cm, 04/20/25 10:25:00 EDT, Height, 102.5, kg, 10/24/24 18:22:00 EST, Dry Weight Start Date: 09/15/25 Status: Ordered Medication Dispense Status: Completed Quantity: 90.0 Unit: tablet Total Allowed Fills: 1 Fills Dispensed: 0 escitalopram 20 mg oral tablet 1 tablet, By Mouth, Daily, # 90 tablet, 1 Refills, Maintenance, 07/18/25 1:20:00 PM EDT, [facility], 183, cm, 04/20/25 10:25:00 EDT, Height, 102.5, kg, 10/24/24 18:22:00 EST, Dry Weight Start Date: 07/18/25 Status: Ordered Medication Dispense Status: Completed Quantity: 90.0 Unit: tablet Total Allowed Fills: 2 Fills Dispensed: 0 gabapentin 300 mg oral capsule 300 mg, 1, capsule, By Mouth, 3 times a day, PRN, # 30 capsule, Refills 0, Tot. Refills 0, Maintenance, Pain , Moderate, 10/24/24 6:59:00 PM EST, Route to Pharmacy Electronically, [facility], Partial fill upon patient request if the prescription is for a schedule II opioid drug.,183, cm, 10/24/24 18:22:00 EST, Height, 102.5, kg, 10/24/24 18:22:00 EST, Dry Weight Start Date: 10/24/24 Status: Ordered Medication Dispense Status: Completed Quantity: 30.0 Unit: capsule Total Allowed Fills: 1 Fills Dispensed: 0 levothyroxine 0.112 mg oral tablet 1 tablet, By Mouth, Daily, # 90 tablet, 1 Refills, Maintenance, [facility], cm, 11/11/24 10:36:00 EST, Height, 102.5, kg, 10/24/24 18:22:00 EST, Dry Weight Start Date: 01/26/25 Status: Ordered Medication Dispense Status: Completed Quantity: 90.0 Unit: tablet Total Allowed Fills: 1 Fills Dispensed: 0 levothyroxine 0.137 mg oral tablet 1 tablet = 137 mcg, By Mouth, Daily, # 90 tablet, 0 Refills, Maintenance, 05/03/25 5:08:00 PM EDT, [facility], Partial fill upon patient request if the prescription is for a schedule II opioid drug., 183, cm, 04/20/25 10:25:00 EDT, Height, 102.5, kg, 10/24/24 18:22:00 EST, Dry Weight Start Date: 05/03/25 Status: Ordered Medication Dispense Status: Completed Quantity: 90.0 Unit: tablet Total Allowed Fills: 1 Fills Dispensed: 0 Indications: Other specified abnormal findings of blood chemistry; levothyroxine 0.137 mg oral tablet 1 tablet = 137 mcg, By Mouth, Daily, # 90 tablet, 3 Refills, Maintenance, 05/03/25 1:46:00 PM EDT, Tablet, [facility], Partial fill upon patient request if the prescription is for a schedule II opioid drug., 183, cm, 04/20/25 10:25:00 EDT, Height, 102.5, kg, 10/24/24 18:22:00 EST, Dry Weight Start Date: 05/03/25 Status: Ordered Medication Dispense Status: Completed Quantity: 90.0 Unit: tablet Total Allowed Fills: 4 Fills Dispensed: 0 Indications: Other specified abnormal findings of blood chemistry; omeprazole 20 mg oral enteric coated capsule 1 capsule, By Mouth, Daily, # 90 capsule, 3 Refills, Maintenance, 07/18/25 1:21:00 PM EDT, [facility], 183, cm, 04/20/25 10:25:00 EDT, Height, 102.5, kg, 10/24/24 18:22:00 EST, Dry Weight Start Date: 07/18/25 Status: Ordered Medication Dispense Status: Completed Quantity: 90.0 Unit: capsule Total Allowed Fills: 4 Fills Dispensed: 0 Problem List Condition Confirmation Course Effective Dates Status H ealth Status Informant Alkaline phosphatase elevation Confirmed Active Elevated alkaline phosphatase level Confirmed Active Morales esophagus 1 Confirmed Active Cholelithiasis without cholecystitis Confirmed Active CKD (chronic kidney disease) stage 2, GFR 60-89 ml/min Confirmed Active Chronic obstructive lung disease Confirmed Active Sigmoid diverticulosis Confirmed Active Dysthymia Confirmed Active History of colitis Confirmed Active Hypothyroidism Confirmed Active Immunization due Confirmed Active Metastatic adenocarcinoma to prostate Confirmed Active Multiple pulmonary nodules 2 Confirmed Active Obese class I Confirmed Active Obstructive sleep apnea syndrome Confirmed Active Prostate cancer screening Confirmed Active Medicare annual wellness visit, subsequent Confirmed Active Prediabetes Confirmed Active Sleep apnea 3 Confirmed Active TSH elevation Confirmed Active -neg path [facility] Social History Social History Type Response Smoking Status Former smoker entered on: 03/29/14 Sex Male Sex Representation Male (finding) Patient Care team information Care Team Personnel Name: Minerva Alberto Position: [facility] AMB Nurse Member Role: Lifetime Consulting Physician Name: Germaine Shaffer NP Position: [facility] PCO Associate Professional Member Role: PCP Address: [address] [place] [address] Telecom: Care Team Related Persons Name: PREETHI MCKEON Name: BARBI PENN Name: YON PENN Insurance Providers Guarantor name: ADITYA [facility] Information #: 1 Payer: MEDICARE B Payer Identifier: NA Member Number: [id number] Group Number: NA Subscriber Identifier: NA Relationship to Subscriber: self Coverage Type: NA Coverage Verification Date: NORA Telecom: NORA Address: NA Health Plan Information #: 2 Payer: MEDEX SECONDARY ONLY Payer Identifier: NORA Member Number: [id number] Group Number: NORA Subscriber Identifier: NORA Relationship to Subscriber: self Coverage Type: Medicare Other Coverage Verification Date: NORA Telecom: NA Address:
--- OUTSIDE RECORDS SUMMARY | 2025-11-16 23:59 | XMS_ITS | Continuity of Care Document ---
Author Organization [facility] Adult Address [address] [place] [phone]- Care Team Providers Care Real Estate Branch Manager Name Role Phone Edmund RIGGS, Germaine Brooks Primary Care Physicia n Encounter [facility] R [id number] Date(s): 09/14/25 - 11/16/25 [facility] Adult [address] [place] [address]- Attending Physician: Liliana Pink MD Encounter Type: Pre Office Visit Allergies, Adverse Reactions, Alerts No Known Allergies [...] 4:00:00 PM EDT, [facility], 25, INHALE 2 PUFFS FOUR TIMES A DAY NEEDED FOR WHEEZING / SHORTNESS OF BREATH, 180, cm, 04/28/24 9:48:00 EDT, Height, 100, kg, 04/20/23 15:33:00 EDT, Dry Weight Start Date: 08/24/24 Status: Ordered Medication Dispense Status: Completed Quantity: 18.0 Unit: g Total Allowed Fills: 1 Fills Dispensed: 0 atorvastatin 40 mg oral tablet 1 tablet, By Mouth, Daily, # 90 tablet, 1 Refills, Maintenance, 09/15/25 4:47:00 PM EDT, [facility], 183, cm, 04/20/25 10:25:00 EDT, Height, 102.5, kg, 10/24/24 18:22:00 EST, Dry Weight Start Date: 09/15/25 Status: Ordered Medication Dispense Status: Completed Quantity: 90.0 Unit: tablet Total Allowed Fills: 1 Fills Dispensed: 0 atorvastatin 40 mg oral tablet 1 tablet, By Mouth, Daily, # 90 tablet, 1 Refills, Maintenance, 09/15/25 4:47:00 PM EDT, [facility], 183, cm, 04/20/25 10:25:00 EDT, Height, 102.5, kg, 10/24/24 18:22:00 EST, Dry Weight Start Date: 09/15/25 Status: Ordered Medication Dispense Status: Completed Quantity: 90.0 Unit: tablet Total Allowed Fills: 1 Fills Dispensed: 0 escitalopram 20 mg oral tablet 1 tablet, By Mouth, Daily, # 90 tablet, 1 Refills, Maintenance, 07/18/25 1:20:00 PM EDT, [facility], 183, cm, 04/20/25 10:25:00 EDT, [...] 6:59:00 PM EST, Route to Pharmacy Electronically, [facility], Partial fill upon patient request [...] tablet, 1 Refills, Maintenance, 01/26/25 4:23:00 PM EST, [facility], 183, cm, 11/11/24 10:36:00 EST, Height, 102.5, kg, 10/24/24 18:22:00 EST, Dry Weight Start Date: 01/26/25 Status: Ordered Medication Dispense Status: Completed Quantity: 90.0 Unit: tablet Total Allowed Fills: 1 Fills Dispensed: 0 levothyroxine 0.137 mg oral tablet 1 tablet = 137 mcg, By Mouth, Daily, # 90 tablet, 0 Refills, Maintenance, 05/03/25 5:08:00 PM EDT, Tablet, [facility], Partial fill upon patient request [...] Refills, Maintenance, 05/03/25 1:46:00 PM EDT, Tablet, [facility], Partial fill upon patient request [...] 3 Confirmed Active TSH elevation Confirmed Active -08/2016-neg path 2[facility] low dose/Dr. Grant 3[facility] Social History Social History Type Response Smoking Status Former smoker entered on: 03/29/14 Sex Male Sex Representation Male (finding) Patient Care team information Care Team Personnel Name: Minerva Alberto Position: [facility] AMB Nurse Member Role: Lifetime Consulting Physician Name: Germaine Shaffer NP Position: [facility] PCO Associate Professional Member Role: PCP Address: [address] [place] [address]- Telecom: Care Team Related Persons Name: PREETHI MCKEON Name: BARBI PENN Name: YON PENN Insurance Providers Guarantor name: ADITYA CAMRYN [facility] Information #: 1 Payer: MEDICARE B Payer Identifier: NA Member Number: [id number] Group Number: NA Subscriber Identifier: [id number] Relationship to Subscriber: self Coverage Type: NA Coverage Verification Date: NA Telecom: NA Address: [facility] Plan Information #: 2 Payer: MEDEX SECONDARY ONLY Payer Identifier: NORA Member Number: [id number] Group Number: NORA Subscriber Identifier: [id number] Relationship to Subscriber: self Coverage Type: Medicare Other Coverage Verification Date: NA Telecom: NA Address:
--- NOTE | 2025-11-17 14:57 | HO.NEPHOV ---
Vital Signs 11/17/25 14:59 Height 5 ft 11 in Weight 224 lb BMI 31.2 BP 110/60 Blood Pressure Location Lt brachial Position Sitting Pulse 68 Pulse Source Pulse Oximeter Pulse Oximetry (%) 96 Oxygen Delivery Method Room Air Intake Visit Reasons: 10mon [id number] [employer] Officer Required: No Accompanied by: Self / Same As Patient Allergies No Known Allergies Allergy (Verified 11/17/25 14:59) HPI Comments Details: Glen in follow-up of his mild chronic kidney disease. He has a new diagnosis of metastatic prostate cancer and is on treatment . He remains abstinent from alcohol. His blood pressure has been at goal. He denies any urinary symptoms, chest pain, proximal nocturnal dyspnea, orthopnea or pedal edema. He has no orthostatic symptoms. He does not take any nonsteroidal anti-inflammatory medications on a regular basis. He has H/O pulmonary nodules. He did not have any other systemic complaints during this office visit [facility] Medical History (Updated 10/28/23 @ 13:04 by Rashaad Barcenas MD) Elevated PSA Chronic kidney disease, stage 2 (mild) Social History Alcohol intake: never Patient Tobacco Use Status: Never used Tobacco Review of Systems Const All systems reviewed & are unremarkable except as noted in HPI and below Physical Exam Vital Signs: Last Vital Signs Pulse 68 11/17/25 14:59 BP 110/60 11/17/25 14:59 Pulse Ox 96 11/17/25 14:59 Oxygen Delivery Method Room Air 11/17/25 14:59 BMI result Body Mass Index 31.2 Const General: comfortable and no acute distress Orientation/consciousness: patient oriented x3 HEENT Head: Yes normocephalic Mouth: Normal oral and palatal mucosa present Eyes EOM: EOMs intact bilaterally Neck Neck: Yes supple Resp Auscultation: clear to auscultation bilaterally Cardio Jugular venous distension: no JVD Rate: regular rate GI Palpation (GI): Soft to palpation Auscultation: normal bowel sounds General: Yes no CVA tenderness Back/Spine/Pelvis Back: no CVA tenderness Skin General skin exam: no rashes or lesions noted Neuro General: patient oriented x3 and moves all extremities Extrem General: Yes no pedal edema Results Reviewed Nephrology Results: Sodium, (135-145) 141 mmol/L 11/10/25 Potassium, (3.3-5.1) 4.1 mmol/L 11/10/25 Chloride, (96-108) 105 mmol/L 11/10/25 Carbon Dioxide, (22-29) 29 mmol/L 11/10/25 BUN, (9-16) 19 mg/dL H 11/10/25 Creatinine, (0.5-1.4) 1.16 mg/dL 11/10/25 Calcium, (8.4-10.2) 9.7 mg/dL 11/10/25 Urine Creatinine 188.92 mg/dL 10/28/23 Protein/Creatinin Ratio, (<0.2) 0.05 10/28/23 Assessment & Plan Assessment & Plan (1) Chronic kidney disease, stage 2 (mild): Code(s): N18.2 - Chronic kidney disease, stage 2 (mild) Category: Medical Plan He has mild CKD likely from tubular injury in the past. His renal functions has been stable. His BP is at goal. He needs to avoid NSAID's. He should remain well hydrated. I did not make any medication changes today. Follow up blood work ordered. Answered all questions. Orders: Orders Electrolytes 1 Year N18.2 - Chronic kidney disease, stage 2 (mild) Calcium 1 Year N18.2 - Chronic kidney disease, stage 2 (mild) Creatinine 1 Year N18.2 - Chronic kidney disease, stage 2 (mild) Blood Urea Nitrogen 1 Year N18.2 - Chronic kidney disease, stage 2 (mild) Coding Level of Care Code Est Pt Level 4 (89261) Diagnoses Chronic kidney disease, stage 2 (mild) N18.2
[2025-11-17 14:59] VITALS: BP 110/60; PULSE 68; O2SAT 96; BMI 31.2
--- OUTSIDE RECORDS SUMMARY | 2025-11-17 18:28 | XMS_ITS ---
Author Organization [facility] Address [address] [place] [address] Phone Care Team Providers Care Nail Feeder Name Role Phone Luc Duarte DO Primary Care Provider [phone] Active Problems Problem Noted Date Diagnosed Date Prostate cancer metastatic to bone 12/30/2024 Current Treatment and Therapy Plans DOCEtaxel / CARBOplatin - Non-Small Cell Lung Cancer / Head and Neck Cancers / Prostate Cancer* Plan Start Date:01/10/2025 Plan Provider:Freddy Mccarthy MD Linked Problems Prostate cancer metastatic t o bone ([facility] V24, [facility] V28) Treatment Medications Current Day (Day 1 [...] Problems Prostate cancer metastatic t o bone ([facility] V24, [facility] V28) Treatment Medications leuprolide (ELIGARD) Past Treatment and Therapy Plans No past plan information found. Lifetime Dose Tracking * Chemical Lifetime Dose Automatic Entry Manual Entr y Fluoro Time 1 minutes 1 minutes 0 minutes Air Kerma 5 mGy 5 mGy 0 mGy
--- OUTSIDE RECORDS SUMMARY | 2025-11-17 18:28 | XMS_ITS | Encounter Summary ---
Author Organization [facility] Address [address] [place] [address] [place] [address] Phone Care Team Providers Care Humanities Division Chair Name Role Phone Luc Duarte Primary Care Provider Ector Carr MD Unavailable Mikie Moss MD Unavailable Freddy Mccarthy MD Unavailable Encounter Details Date Type Department Care Team (Late st Contact Info) Description 11/19/2024 Procedure Pass [facility] Cross Sectional Interventional Radiology [address] [place] [address] Social History Tobacco Use Types Packs/Day Years [...] st Contact Info) Description 10/17/2025 Procedure Pass [facility] Imaging - RF/IR [address] [place] [address] 10/19/2025 11:59 PM EST Anesthesia Event [facility] [address] [place] [address] Fran Young CNP [address] [place] [phone] 12/05/2025 11:00 AM EST Appointment [facility] [place] Radiation Oncology [address] [address] Sergei Fisher MD, ALYSHA 75 [facility], [facility] [address] 12/06/2025 Hospital Encounter [facility] [address] [place] [address] Zelalem Negrete MD 55 [facility] FND [address] [place], [place] [email or web address] 12/06/2025 Procedure Pass [facility] [address] [place] [address] 12/09/2025 10:00 AM EST Appointment [facility] Imaging - RF/IR [address] [place], [place] [phone] Sergei Fisher MD, ALYSHA [address], ASB1- [address] [place], [place] [email or web address] Donell Weaver MD [address] [facility] [address] W[address] [place], [place] [email or web address] Scheduled Procedures Name Priority Associated Diagnoses Date/Ti me TRANSPERINEAL PLACEMENT BIOD EGRADABLE MATERIAL PROSTATE Prostate cancer documented as of this encounter Visit Diagnoses Not on filedocumented in this encounter Care Teams Humanities Division Chair Relationship Specialty Start Date End Date Luc Duarte DO 24 [facility] [place] [address] PCP - General Family Medicine 11/08/24 Ector Carr MD 24 [facility] Internal Medicine [place], [place] Referring Physician Urology 11/08/24 Mikie Moss MD [address] [place] [address] [email or web address] Medical Oncology 11/08/24 Freddy Mccarthy MD [address] [place] [address] [email or web address] Medical Oncology 11/15/24 documented as of this encounter Additional Source Comments The information contained in this document represents components of the legal health record. It is not the complete legal health record.[facility]
--- OUTSIDE RECORDS SUMMARY | 2025-11-17 18:28 | XMS_ITS | Clinical Summary ---
Author Organization [facility] Address [address] [place] [address] Phone Care Team Providers Care Special Trackwork Blacksmith Name Role Phone Luc Duarte Primary Care Provider Ector Carr MD Unavailable [phone] Mikie Moss MD Unavailable Freddy Mccarthy MD Unavailable [phone] Medications albuterol 2.5 mg /3 mL (0.083 [...] Team Description 10/17/2025 2:00 PM EST Telemedicine [facility], [facility] [place] [address] [facility], [address]th [place] [address] Sergei Fisher MD, ALYSHA Prostate cancer (Primary [...] st Contact Info) Description 10/17/2025 Procedure Pass [facility] Imaging - RF/IR [address] [place] [address] 10/19/2025 11:59 PM EST Anesthesia Event [facility] [address] [place] [address] Fran Young, VALET ATTENDANT [address] [place] [phone] 12/05/2025 11:00 AM EST Appointment [facility] Radiation Oncology [address] [place] [address] Sergei Fisher MD, ALYSHA [address] [address] 12/06/2025 Hospital Encounter [facility] [address] [place] [address] Zelalem Negrete MD 55 [facility] FND [address] [place] [address] [email or web address] 12/06/2025 Procedure Pass [facility] [address] [place] [address] 12/09/2025 10:00 AM EST Appointment [facility] Imaging - RF/IR 55 [place] [address] Sergei Fisher MD, ALYSHA [address] [address] [email or web address] Donell Weaver MD 55 [facility] [place] [address] [email or web address] Scheduled Procedures Name Priority Associated Diagnoses Date/Ti [...] (#1) 2025 2, 12/03/2019, 09/28/2016 COVID-19 VACCINE (2025-01 6 season) 2025 03/12/2021, 02/17/2021 TSH LEVEL [...] topic Medical Devices Not on file Insurance [facility] MEDEX SUPPLEMENT MEDICARE PART A & B [employer] MEDEX SUPPLEMENT MEDICARE PART A & B [employer] MEDEX SUPPLEMENT MEDICARE PART A & B [employer] MEDEX SUPPLEMENT MEDICARE PART A & B [employer] MEDEX SUPPLEMENT MEDICARE PART A & B [facility] MEDEX SUPPLEMENT MEDICARE PART A & B Care Teams Special Trackwork Blacksmith Relationship Specialty Start Date End Date Luc Duarte DO 24 No [facility] [place] [address] PCP - General Family Medicine 11/08/24 Ector Carr MD 24 No [facility] Internal [place], [place] [email or web address] Referring Physician Urology 11/08/24 Mikie Moss MD [address] [place] [address] [email or web address] Medical Oncology 11/08/24 Freddy Mccarthy MD [address] [place] [id number] [email or web address] Medical Oncology 11/15/24 Additional Source Comments The information contained in this document represents components of the legal health record. It is not the complete legal health record.[facility]
--- OUTSIDE RECORDS SUMMARY | 2025-11-17 18:28 | XMS_ITS | Clinical Summary ---
Author Organization [facility] Address [address] [facility] [address] [place] [address] Phone Care Team Providers Care Camera Repairman Name Role Phone Luc Duarte DO Primary Care Provider [phone] Allergies No known active allergies Medications Multiple Vitamin (MULTIVITAMIN ADULT PO) Take 1 tablet by mouth 1 (one) time each day Active aspirin (ST MARCO) 81 MG EC tablet Take 1 tablet by mouth 1 (one) time each day Active atorvastatin (LIPITOR) 40 MG tablet Take 1 tablet by mouth 1 (one) time each day Active escitalopram (LEXAPRO) 20 MG tablet Take 1 tablet by mouth 1 (one) time each day Active levothyroxine (SYNTHROID, LEVOTHROID) 112 MCG tablet Take 1 tablet by mouth 1 (one) time each day Active omeprazole (PriLOSEC) [address] capsule Take 1 capsule by mouth 1 (one) time each day Active Active Problems Problem Noted Date Diagnosed Date Acute nontraumatic kidney injury 05/15/2021 Chronic kidney disease, stage 2 (mild) Resolved Problems Problem Noted Date Diagnosed Date Resolved Date Morales's esophagus 08/02/2022 08/02/20 22 Overview (08/02/2022): EGD-08/2016-neg path Chronic obstructive pulmonary disease 08/02/2022 08/02/2022 Dysthymia 08/02/2022 08/02/2022 History of anemia 08/02/2022 08/02/2022 H/O: depression 08/02/2022 08/02/2022 H/O: fracture 08/02/2022 08/02/2022 Hiatal hernia 08/02/2022 08/02/2022 Hyperlipidemia 08/02/2022 08/02/2022 Hypothyroidism 08/02/2022 08/02/2022 Multiple nodules of lung 08/02/202201/2022 Overview (08/02/2022): [facility] low dose/Dr. Grant Obese class I 08/02/2022 08/02/2022 Obstructive sleep apnea syndrome 08/02/2022 08/02/2022 Overview (08/02/2022): Dr. Pryor Immunizations Immunization Administration Dates Next Due Influenza Whole 12/07/2019 Pfizer SARS-COV-2 03/12/2021,02/17/2021 Family History Medical History Relation Comments Hypertension Father Stroke Father Relation Status Comments Father Mother Alive Social History Tobacco Use Types Packs/Day Years Used Date Smoking Tobacco: Never Smokeless Tobacco: Never Tobacco Cessation:Counseling Given: Not Answered Alcohol Use Standard Drinks/Week Comments Yes 0 (1 standard drink = 0.6 oz pure alcohol) Alcoholic Drinks/day: 1-2 drinks per day Sex and Gender Information Value Date Recorded Sex Assigned at Not on file Legal Sex Male 5:09 PM EST Gender Identity Not on file Sexual Orientation Not on file Last Filed Vital Signs Vital Sign Reading Time Taken Comments Blood Pressure 130/80 08/06/2022 2:31 PM EDT Pulse 63 08/06/2022 2:31 PM EDT Temperature - - Respiratory Rate - - Oxygen Saturation - - Inhaled Oxygen Concentration - - Weight 102 kg (224 lb) 08/06/2022 2:31 PM EDT Height 182.9 cm (6') 05/22/2020 12:00 PM EDT Body Mass Index 30.38 05/22/2020 12:00 PM EDT Plan of Treatment Health Maintenance Due Date Last Done Comments Pneumococcal Vaccine: 50+ Ye ars (1 of 2 - PCV) 02/12/1975 Colorectal Cancer Screening: Annual FOBT 02/12/2005 Colorectal Cancer Screening: Colonoscopy 02/12/2005 Colorectal Cancer Screening: Sigmoidoscopy 02/12/2005 Influenza Vaccine (#1) 2025 12/07/2019 Hepatitis B Vaccine Aged Out No longe r eligible based on patient's age to complete this topic Insurance * Guarantor: Glen Jimenez Account Type Relation to Patient Date of Phone Billing Address Personal/Family Self [address] [place] [id number] Medicare [facility] * Guarantor: Glne Jimenez Account Type Relation to Patient Date of Phone Billing Address Personal/Family Self [address] [place] [id number] Medicare [facility] Care Teams Camera Repairman Relationship Specialty Start Date End Date Luc Duarte DO [address] [place] [id number] PCP - General 12/11/20
--- OUTSIDE RECORDS SUMMARY | 2025-11-17 18:28 | XMS_ITS | Clinical Summary ---
Author Organization [facility] Address [address] [place] [address] Phone Care Team Providers Care Finance Consultant Name Role Phone Luc Duarte DO Primary Care Provider [phone] Allergies No known active allergies Medications atorvastatin [...] 9:25 AM EST Lab Draw Station - [address] [address] Prostate cancer metastatic to bone (CMS/HCC V24, CMS/HCC V28) 11/02/2025 8:45 AM EST Office Visit [facility] Hematology Oncology [address] [place] [phone] Freddy Mccarthy MD Prostate cancer metastatic to bone (CMS/HCC V24, CMS/HCC V28) (Primary Dx) 08/29/2025 9:18 AM EDT - 08/29/2025 11:59 PM EDT Hospital Encounter [facility] Radiation Oncology [address] [place] [phone] Charles Almanzar MD Prostate cancer metastatic to bone (CMS/HCC V24, CMS/HCC V28) (Primary Dx) Discharge Disposition: Home or Self Care 08/29/2025 9:17 AM EDT - 08/29/2025 11:59 PM EDT Hospital Encounter [facility] Radiation Oncology [address] [place] [phone] Discharge Disposition: Home or Self Care from Last 3 Months Surgical History Surgery Date Site/Laterality Comments HERNIA REPAIR Medical History Medical History Date Comments Bone cancer (CMS/HCC V24, CMS/HCC V28) Prostate cancer (CMS/HCC V24, CMS/HCC V28) 10/24 Metastatic cancer (CMS/HCC V24, CMS/HCC V28) Cancer (CMS/HCC V24, CMS/HCC V28) Basal cell carcinoma nose Family History [...] Info) Description 01/26/2026 8:30 AM EST Appointment [facility] Infusion Center [address] [facility] 2nd [place] [address] 02/02/2026 3:30 PM EST Ancillary Procedure [facility] [address] [place] [address] 03/08/2026 9:00 AM EDT Office Visit [facility] Hematology Oncology [address] [place] [address] Freddy Mccarthy MD [address] [place] [phone] Health Maintenance Due Date Last Done Comments [...] this topic Medical Devices Implanted Type Area Financial Services Professional Device Identifier Shelf Expiration Date Model / Serial / Lot Port Pwr Isp Attach 6f Interm Phyllis - [id number] - [id number] Implanted:Qty: 1 on 01/04/2025 at [facility] Central/Nata pheral Catheters and Ports Right: Chest Wall CR BARD PERIPHERAL VASCULAR [id number] 09/30/2025 [id number] / [id number] / [id number] Procedures Procedure Name Priority Date/Time Associated Diagnosis [...] specific antigen diagnostic (11/02/2025 9:22 AM EST) PSA 0.05 0.00 - 4.00 ng/mL 11/02/2025 12:09 PM EST [facility] Blood Venous blood specimen / Unknown Venipuncture / Unknown 11/02/2025 9:22 AM EST 11/02/2025 11:40 AM EST Narrative [facility] - 11/02/2025 12:09 PM EST The Siemens Venturi Wireless IM Chemiluminescent Immunoassay is used. Results obtained with different assay methods or kits cannot be used interchangeably. Results cannot be interpreted as absolute evidence of the presence or absence of malignant disease. Freddy Mccarthy MD LAB BLOOD ORDERABLES Final R esult [facility] [address] [place] [address], [place] [phone] * (ABNORMAL) CBC auto differential (11/02/2025 9:22 AM EST) WBC 7.0 4.8 - 10.8 K/mcL LAB HEMETOLOGY METHOD 11/02/2025 11:52 AM [facility] RBC 5.00 4.50 - 5.50 M/mcL LAB HEMETOLOGY METHOD 11/02/2025 11:52 AM [facility] Hemoglobin 14.8 13.5 - 17.5 [...] 11:52 AM [facility] Basophils Relative 1.0 % LAB HEMETOLOGY METHOD 11/02/2025 11:52 AM [facility] Immature Granulocytes Relative 0.6 % LAB HEMETOLOGY METHOD 11/02/2025 11:52 AM [facility] Neutrophils Absolute 3.24 1.50 - 7.00 K/mcL LAB HEMETOLOGY METHOD 11/02/2025 11:52 AM [facility] Lymphocytes Absolute 2.35 1.00 - 5.00 K/mcL LAB HEMETOLOGY METHOD 11/02/2025 11:52 AM [facility] Monocytes Absolute 0.81 0.20 - 1.00 K/mcL LAB HEMETOLOGY METHOD 11/02/2025 11:52 AM [facility] Eosinophils Absolute 0.45 0.00 - 0.50 K/mcL LAB HEMETOLOGY METHOD 11/02/2025 11:52 AM [facility] Basophils Absolute 0.07 0.00 - 0.20 K/mcL LAB HEMETOLOGY METHOD 11/02/2025 11:52 AM EST [facility] Immature Granulocytes Absolute 0.04(H) 0.00 - 0.03 K/mcL LAB HEMETOLOGY METHOD 11/02/2025 11:52 AM EST [facility] Blood Blood sample taken from central line / Unknown Existing Catheter / Unknown 11/02/2025 9:22 AM EST 11/02/2025 11:40 AM EST Freddy Mccarthy MD LAB BLOOD ORDERABLES Final R esult [facility] [address] [place] [address], [place] [phone] * (ABNORMAL) Magnesium (11/02/2025 9:22 AM EST) Magnesium 1.8(L) 1.9 - 2.6 mg/dL 11/02/2025 12:26 PM EST [facility] Blood Blood sample taken from central line / Unknown Existing Catheter / Unknown 11/02/2025 9:22 AM EST 11/02/2025 11:40 AM EST Freddy Mccarthy MD LAB BLOOD ORDERABLES Final R esult [facility] [address] [place] [address], [place] [phone] * (ABNORMAL) Comprehensive metabolic panel (11/02/2025 9:22 AM EST) Sodium 139 133 - 145 mmol/L 11/02/2025 2:00 PM EST [facility] Potassium 4.2 3.5 - 5.5 mmol/L 11/02/2025 2:00 PM EST [facility] Chloride 100 96 - 110 mmol/L 11/02/2025 2:00 PM EST [facility] CO2 28 21 - 32 [...] MD LAB BLOOD ORDERABLES Final R esult [facility] [address] [place] [address], * Colonoscopy (08/26/2016) Colonoscopy normal, abstracted Anatomical Region Laterality Modality Other us Historical Provider HEALTH MAINTENANCE Final Result from Last 3 Months or Most Recently Relevant to Health Maintenance Insurance MEDICARE [facility] Care Teams Finance Consultant Relationship Specialty Start Date End Date Luc Duarte DO [address], [place] PCP - General 09/18/22
--- OUTSIDE RECORDS SUMMARY | 2025-11-17 18:28 | XMS_ITS | Clinical Summary ---
Author Organization [facility] Address [address] [place] [address] Care Team Providers Care Supervisor Paper Testing Name Role Phone Pcp, No Primary Care [...] topic Insurance MEDICARE PART A & [place] [id number] Care Teams Supervisor Paper Testing Relationship Specialty Start Date End Date Pcp, No PCP - General General Medicine 10/24/24
== END 2025-11-17 15:19 | disposition home or self-care (01) ==
LOC: HO.HKAS 14:14
PROVIDERS: PCP Family Medicine; Visit Provider Internal Medicine Nephrology
DX: N18.2 Chronic kidney disease, stage 2 (mild) (principal)
CPT/HCPCS: 99214

== ENCOUNTER → 2025-11-17 14:13 | Outpatient (BNVA) | payer MEDICARE, SELFPAY | PROVIDERS: PCP Family Medicine; Visit Provider Internal Medicine Nephrology | DX: N18.2 Chronic kidney disease, stage 2 (mild) (principal); I10 Essential (primary) hypertension | CPT/HCPCS: 99212 ==